=== PATIENT | male | born 1980 | race Two or more races ===

== ENCOUNTER 2023-08-15 10:07 | Emergency (ER) | payer MEDICAID, OTHER ==
[~2023-08-15] VITALS: Ht 177.8 cm; Wt 159.6 kg
[2023-08-15 10:47] VITALS: BP 160/95; PULSE 88; RESP 18; TEMP 98.2; O2SAT 98
[2023-08-15] MEDS ORDERED: FLUT1SPR5 (12:16)
[2023-08-15] MEDS ORDERED: AUG875T PO (12:16)
== END 2023-08-15 12:36 | disposition home or self-care (01) ==
LOC: ER 10:07
DX: J32.0 Chronic maxillary sinusitis (principal); I10 Essential (primary) hypertension

== ENCOUNTER 2023-09-29 09:05 | Emergency (ER) | payer MEDICAID ==
[~2023-09-29] VITALS: Ht 177.8 cm; Wt 157.1 kg
[~2023-09-29 09:05] MED LIST: AUG875T PO; FLUT1SPR5
[2023-09-29 09:12] VITALS: RESP 18
[2023-09-29 09:36] VITALS: BP 158/83; PULSE 97; TEMP 98.9; O2SAT 93
[2023-09-29 11:28] LABS: Rapid Influenza A Negative (Negative); Rapid Influenza B Negative (Negative)
[2023-09-29 11:29] LABS: COVID19 ANTIGEN SOFIA FIA NEGATIVE (NEGATIVE)
[2023-09-29] MEDS ORDERED: LORA10CA PO (11:49)
[2023-09-29] MEDS ORDERED: BENZ100C97 PO (11:49)
== END 2023-09-29 11:50 | disposition home or self-care (01) ==
LOC: ER 09:05
DX: J06.9 Acute upper respiratory infection, unspecified (principal); I10 Essential (primary) hypertension; R07.9 Chest pain, unspecified; Z20.822 Contact with and (suspected) exposure to COVID-19
CPT/HCPCS: 36415; 71045; 87426; 87804